=== PATIENT | female | born 1960 | race Caucasian/White ===

== ENCOUNTER 2016-05-28 08:27 | Outpatient (CLI) | payer MEDICAID ==
[2016-05-28] VITALS (19 sets, daily range): BP systolic 94–159; BP diastolic 49–74
[2016-05-28 10:36] LABS: ABO BLOOD TYPE O; ANTIHUMAN GLOB CROSSMATCH COMPAT; RH BLOOD TYPE POSITIVE
[2016-08-23] MEDS ORDERED: GABAPENTIN300 MG PO (15:14)
[2016-08-23] MEDS ORDERED: ZOFRAN ODT4 MG PO (15:18)
[2016-08-23] MEDS ORDERED: BISACODYL LAXATI5 MG PO (15:18)
[2016-08-23] MEDS ORDERED: IMODIUM 2MG. CAP2 MG PO (15:18)
[2016-08-23] MEDS ORDERED: PROMETHAZINE HC25 M1 PO (15:19)
[2016-08-23] MEDS ORDERED: CARAFATE1 GM PO (16:10)
== END 2016-05-28 15:58 | disposition home or self-care (01) ==
LOC: COP 08:27
PROVIDERS: Family Medicine
DX: D64.9 Anemia, unspecified (principal)
CPT/HCPCS: P9016

== ENCOUNTER 2016-06-19 09:44 | Inpatient (IN) | payer MEDICAID ==
[~2016-06-19] VITALS: Ht 160 cm; Wt 68.5 kg
[2016-06-19] VITALS (20 sets, daily range): BP systolic 92–139; BP diastolic 49–80
[2016-06-19] MEDS ORDERED: DOCUSATE SODIU100 MG PO (12:52)
[2016-06-19] MEDS ORDERED: BISOPROLOL 5MG T5 MG PO (12:53)
[2016-06-19] MEDS ORDERED: FEOSOL325 MG PO (12:53)
[2016-06-19] MEDS ORDERED: ACETAMINOPHEN325 M2 PO (12:54)
[2016-06-19] MEDS ORDERED: IMODIUM 2MG. CAP2 MG PO (12:55)
[2016-06-19] MEDS ORDERED: PHENERGAN25 M3 PO (12:55)
[2016-06-19] MEDS ORDERED: KETOROLAC0.03 ML/DR OP (12:57)
[2016-06-19] MEDS ORDERED: PERPHENAZINE4 MG PO ×2 (12:59→14:56)
[2016-06-19] MEDS ORDERED: LISINOPRIL 5MG T5 MG PO (13:00)
[2016-06-19] MEDS ORDERED: VIGAMOX 3 ML3 ML OP (13:00)
[2016-06-19] MEDS ORDERED: BENZTROPINE1 MG PO ×2 (13:01→14:54)
[2016-06-19] MEDS ORDERED: DEPAKOTE ER250 MG PO (13:03)
[2016-06-19] MEDS ORDERED: SAPHRIS5 MG SL ×2 (13:03→14:53)
[2016-06-19] MEDS ORDERED: Q-TUSSIN100 MG/5 M PO (13:04)
[2016-06-19] MEDS ORDERED: METFORMIN 500M500 MG PO (13:05)
[2016-06-19] MEDS ORDERED: CITALOPRAM HYDR20 MG PO (13:05)
[2016-06-19] MEDS ORDERED: GABAPENTIN300 MG PO (13:06)
[2016-06-19] MEDS ORDERED: FLUTICASONE 50M16 GM (13:06)
[2016-06-19] MEDS ORDERED: LORATADINE 10MG10 M1 PO (13:07)
[2016-06-19] MEDS ORDERED: LEVOTHYROXIN0.137 M1 PO (13:07)
--- NOTE | 2016-06-19 13:46 | CONSULT NOTE ---
Standard Demographics Patient Demo Date of Consultation: 06/19/16 Referring Provider: Ben Alonzo MD Reason for Consultation: Anemia PRIMARY DIAGNOSIS: ANEMIA Allergies: Coded Allergies: No Known Allergies (06/19/16) History of Present Illness Chief Complaint: Weakness History of Present Illness: Patient is a 55-year-old white female with history of schizophrenia who is a resident of [facility]. Apparently she was noted on routine preoperative blood work relatively recently prior to eye surgery to be anemic. No prior history of anemia. She has apparently had some recent vomiting. No known hematemesis. She had a syncopal episode today and was evaluated in her primary care provider's office at which time she was found to have appreciable anemia reportedly. She was admitted for inpatient management and surgical consultation. Past Medical History Denies: diabetes mellitus. Surgical History Previous Surgery?Y FULL MOUTH EXTRACTION RIGHT CATARACT Allergies Coded Allergies: No Known Allergies (06/19/16) Medications: Reported Medications Docusate Sodium 250 MG PO BID Ferrous Sulfate (Feosol) 325 MG PO BID BISOPROLOL FUMARATE (Bisoprolol 5MG) 5 MG PO DAILY Acetaminophen (Acetaminophen) 325 MG PO Q4HP PRN PAIN/FEVER PROMETHAZINE HCL (Phenergan 25MG Tab (Geq)) 25 MG PO QIDP PRN NAUSEA/VOMITING Loperamide Hcl (Loperamide) 2 MG PO QIDP PRN DIARRHEA Ketorolac Tromethamine (Ketorolac 0.5% Ophth Soln 5ML) 1 DROP OP QID Perphenazine 4 MG PO QHS MOXIFLOXACIN HCL (Vigamox 3 Ml) 1 DROP OP QID LISINOPRIL (Lisinopril) 5 MG PO DAILY BENZTROPINE MESYLATE (Benztropine 1MG Tab) 2 MG PO TID ASENAPINE MALEATE (Saphris) 5 MG SL BID Divalproex Sodium (Depakote ER) 500 MG PO DAILY Guaifenesin (Q-Tussin) 5 ML PO Q4H Citalopram Hydrobromide (Citalopram HBr) 20 MG PO DAILY METFORMIN HCL (Metformin 500MG) 500 MG PO DAILY Gabapentin (Gabapentin 300MG) 600 MG PO BID FLUTICASONE PROPIONATE (Fluticasone 50MCG Nasal [place]) 1 SPRAY NA DAILY Levothyroxine Sodium (Levothyroxine 0.137MG) 0.137 MG PO DAILY Loratadine (Loratadine 10MG Tablet) 10 MG PO DAILY Smoking Hx Tobacco: No Smoker: Never Smoker Type: N/A Packs/day: N/A Are you/the child exposed to second-hand smoke: No Alcohol Alcohol: No Hx of Drug Use Drug Use? No Review of Systems Constitutional Positive for: weak. Skin No: bruising. Immune/allergy No: anaphalaxis. Eyes No: vision loss. ENT No: hearing loss. Respiratory No: shortness of air. Cardiovascular No: chest pain. GI No: hematemeis. Physical Exam VS/I&O Vital Signs Date Time Temp Pulse Resp B/P Pulse O2 O2 Flow FiO2 Ox Delivery Rate 06/19 1105 97.9 83 18 114/49 98 ROOM AIR 06/19 1053 82 06/19 1053 98.1 82 18 114/49 06/19 1053 98 ROOM AIR Exam General appearance no acute distress Respiratory clear to auscultation Cardiovascular normal heart sounds Abdomen soft Skin pale Plan Plan: Follow up on laboratory studies. Transfuse if necessary. Likely tentatively plan to start with upper endoscopy tomorrow. at 1345
--- NOTE | 2016-06-19 13:48 | HISTORY AND PHYSICAL REPORT ---
History and Physical ([facility]) Date of admission: 06/19/16 Chief complaint: Dizziness, low BP, low HGB History: History of Present Illness: Ms. vIey is a 55yo female resident of the [facility] who presented to the office of [facility] today in [place] after an episode of dizziness and low BP. Her HGB was low as was her BP. She was directly admitted for a blood transfusion. According to the patient's family member she just had a transfusion about a month ago d/t low HGB. After receiving blood the last time, she vomited for a week and was taken to [facility] and was diagnosed with pneumonia. She states at this time the pneumonia is better as is the vomiting, she just feels very weak. Past Medical History: Medical History: CAD? No Angina: No OH: No Hypertension? No Hyperlipidemia? No CHF? No DVT? No PE? No COPD? No Asthma? No Anemia? Yes GERD? No Hernia? No Thyroid Problems? Yes Hypothyroidism? Yes CVA? No Seizures? No Diabetes? Yes Insulin Dependent: No Home FSBS? No UTI? No Stones? No GB Disease: No Nephritic Syndrome? No Asplenia? No Hepatitis? No Sickle Cell Disease? No Cataracts? Yes Glaucoma? No MRSA? No HIV? No TB? No Cancer? No More? Yes Additional hx: 1.ONYCHOMYCOSIS 2. SCHIZOPHRENIA Surgical history: Previous Surgery?Y 1. FULL MOUTH TOOTH EXTRACTION 2. 3. CATARACT Medications: Reported Medications ASENAPINE MALEATE (Saphris) 5 MG SL BID BENZTROPINE MESYLATE (Benztropine 1MG Tab) 1 MG PO TID Perphenazine 4 MG PO QHS Docusate Sodium 250 MG PO BID Ferrous Sulfate (Feosol) 325 MG PO BID BISOPROLOL FUMARATE (Bisoprolol 5MG) 5 MG PO DAILY Acetaminophen (Acetaminophen) 325 MG PO Q4HP PRN PAIN/FEVER PROMETHAZINE HCL (Phenergan 25MG Tab (Geq)) 25 MG PO QIDP PRN NAUSEA/VOMITING Loperamide Hcl (Loperamide) 2 MG PO QIDP PRN DIARRHEA Ketorolac Tromethamine (Ketorolac 0.5% Ophth Soln 5ML) 1 DROP OP QID Perphenazine 4 MG PO QHS MOXIFLOXACIN HCL (Vigamox 3 Ml) 1 DROP OP QID LISINOPRIL (Lisinopril) 5 MG PO DAILY Divalproex Sodium (Depakote ER) 500 MG PO DAILY Guaifenesin (Q-Tussin) 5 ML PO Q4H Citalopram Hydrobromide (Citalopram HBr) 20 MG PO DAILY METFORMIN HCL (Metformin 500MG) 500 MG PO DAILY Gabapentin (Gabapentin 300MG) 600 MG PO BID FLUTICASONE PROPIONATE (Fluticasone 50MCG Nasal [place]) 1 SPRAY NA DAILY Levothyroxine Sodium (Levothyroxine 0.137MG) 0.137 MG PO DAILY Loratadine (Loratadine 10MG Tablet) 10 MG PO DAILY Allergies: Coded Allergies: No Known Allergies (06/19/16) Family History: Family history: Postive for: CAD, DM, HTN. Negative for: cancer, hyperlipidemia, stroke. Social History: Smoking Hx Tobacco: No Smoker: Never Smoker Type: N/A Packs/day: N/A Are you exposed to second hand No Alcohol: Alcohol: No Hx of Drug Use: Drug Use? No Review of Systems: Constitutional Positive for: fatigue, lethargy, malaise, weak. ENT No: nasal congestion, sore throat. Cardiovascular No: chest pain, edema, palpitations. Respiratory No: shortness of air, productive cough (sputum), wheezing. GI Positive for: diarrhea, vomitting. No: abdominal pain, nausea. (female) No: frequency, hematuria. Neurological Positive for: dizziness, light headed, weakness. No: syncope. Musculoskeletal Positive for: joint pain (BACK). No: extremity pain, myalgias. Physical Exam: Vital signs: 1ST Vital Signs Result Date Time Pulse Ox 98 06/19 1053 O2 Delivery ROOM AIR 06/19 1053 B/P 114/49 06/19 1053 Temp 98.1 06/19 1053 Pulse 82 06/19 1053 Resp 18 06/19 1053 Exam: General appearance: alert, awake, no acute distress Eyes: EOM's w/normal ROM, PERRLA ENT: mucous membranes moist, nose normal, pharynx normal, tympanic membranes normal Neck: non-tender, full range of motion, supple Cardiovascular: regular rate & rhythm Respiratory: clear to auscultation ABD: non-distended, normal bowel sounds, no rebound, soft, no tenderness, no guarding Extremities: no peripheral edema Musculoskeletal: equal muscle strength, motor intact, sensation intact Skin: pale 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 Anemia 2. Hypothyroidism 3. Schizophrenia 4. Diabetes Plan: Pt will be transfused with 2 units of PRBC's. Will get an anemia workup. Dr. Irwin has been consulted and he note has been reviewed. (Bonnie Jaimes) Diagnosis(es): 1. Symptomatic anemia 2. Hypotension due to blood loss 3. Iron deficiency 4. Hypothyroidism 5. Schizophrenia 6. Diabetes Plan: Pt seen and examined. Concur with above assessment and plan. SHe is anxious about her procedure tomorrow. Will order Ambien for sleep. (Girish Alonzo MD) at 1501 at [phone]
--- NOTE | 2016-06-19 13:48 | HISTORY AND PHYSICAL REPORT ---
History and Physical ([facility]) Date of admission: 06/19/16 Chief complaint: Dizziness, low BP, low HGB History: History of Present Illness: Ms. Ivey is a 55yo female resident of the [facility] who presented to the office of [facility] today in [place] after an episode of dizziness and low BP. Her HGB was low as was her BP. She was directly admitted for a blood transfusion. According to the patient's family member she just had a transfusion about a month ago d/t low HGB. After receiving blood the last time, she vomited for a week and was taken to [facility] and was diagnosed with pneumonia. She states at this time the pneumonia is better as is the vomiting, she just feels very weak. Past Medical History: Medical History: CAD? No Angina: No OH: No Hypertension? No Hyperlipidemia? No CHF? No DVT? No PE? No COPD? No Asthma? No Anemia? Yes GERD? No Hernia? No Thyroid Problems? Yes Hypothyroidism? Yes CVA? No Seizures? No Diabetes? Yes Insulin Dependent: No Home FSBS? No UTI? No Stones? No GB Disease: No Nephritic Syndrome? No Asplenia? No Hepatitis? No Sickle Cell Disease? No Cataracts? Yes Glaucoma? No MRSA? No HIV? No TB? No Cancer? No More? Yes Additional hx: 1.ONYCHOMYCOSIS 2. SCHIZOPHRENIA Surgical history: Previous Surgery?Y 1. FULL MOUTH TOOTH EXTRACTION 2. 3. CATARACT Medications: Reported Medications ASENAPINE MALEATE (Saphris) 5 MG SL BID BENZTROPINE MESYLATE (Benztropine 1MG Tab) 1 MG PO TID Perphenazine 4 MG PO QHS Docusate Sodium 250 MG PO BID Ferrous Sulfate (Feosol) 325 MG PO BID BISOPROLOL FUMARATE (Bisoprolol 5MG) 5 MG PO DAILY Acetaminophen (Acetaminophen) 325 MG PO Q4HP PRN PAIN/FEVER PROMETHAZINE HCL (Phenergan 25MG Tab (Geq)) 25 MG PO QIDP PRN NAUSEA/VOMITING Loperamide Hcl (Loperamide) 2 MG PO QIDP PRN DIARRHEA Ketorolac Tromethamine (Ketorolac 0.5% Ophth Soln 5ML) 1 DROP OP QID Perphenazine 4 MG PO QHS MOXIFLOXACIN HCL (Vigamox 3 Ml) 1 DROP OP QID LISINOPRIL (Lisinopril) 5 MG PO DAILY Divalproex Sodium (Depakote ER) 500 MG PO DAILY Guaifenesin (Q-Tussin) 5 ML PO Q4H Citalopram Hydrobromide (Citalopram HBr) 20 MG PO DAILY METFORMIN HCL (Metformin 500MG) 500 MG PO DAILY Gabapentin (Gabapentin 300MG) 600 MG PO BID FLUTICASONE PROPIONATE (Fluticasone 50MCG Nasal [place]) 1 SPRAY NA DAILY Levothyroxine Sodium (Levothyroxine 0.137MG) 0.137 MG PO DAILY Loratadine (Loratadine 10MG Tablet) 10 MG PO DAILY Allergies: Coded Allergies: No Known Allergies (06/19/16) Family History: Family history: Postive for: CAD, DM, HTN. Negative for: cancer, hyperlipidemia, stroke. Social History: Smoking Hx Tobacco: No Smoker: Never Smoker Type: N/A Packs/day: N/A Are you exposed to second hand No Alcohol: Alcohol: No Hx of Drug Use: Drug Use? No Review of Systems: Constitutional Positive for: fatigue, lethargy, malaise, weak. ENT No: nasal congestion, sore throat. Cardiovascular No: chest pain, edema, palpitations. Respiratory No: shortness of air, productive cough (sputum), wheezing. GI Positive for: diarrhea, vomitting. No: abdominal pain, nausea. (female) No: frequency, hematuria. Neurological Positive for: dizziness, light headed, weakness. No: syncope. Musculoskeletal Positive for: joint pain (BACK). No: extremity pain, myalgias. Physical Exam: Vital signs: 1ST Vital Signs Result Date Time Pulse Ox 98 06/19 1053 O2 Delivery ROOM AIR 06/19 1053 B/P 114/49 06/19 1053 Temp 98.1 06/19 1053 Pulse 82 06/19 1053 Resp 18 06/19 1053 Exam: General appearance: alert, awake, no acute distress Eyes: EOM's w/normal ROM, PERRLA ENT: mucous membranes moist, nose normal, pharynx normal, tympanic membranes normal Neck: non-tender, full range of motion, supple Cardiovascular: regular rate & rhythm Respiratory: clear to auscultation ABD: non-distended, normal bowel sounds, no rebound, soft, no tenderness, no guarding Extremities: no peripheral edema Musculoskeletal: equal muscle strength, motor intact, sensation intact Skin: pale 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 Anemia 2. Hypothyroidism 3. Schizophrenia 4. Diabetes Plan: Pt will be transfused with 2 units of PRBC's. Will get an anemia workup. Dr. Irwin has been consulted and he note has been reviewed. (Bonnie Jaimes) Diagnosis(es): 1. Symptomatic anemia 2. Hypotension due to blood loss 3. Iron deficiency 4. Hypothyroidism 5. Schizophrenia 6. Diabetes Plan: Pt seen and examined. Concur with above assessment and plan. SHe is anxious about her procedure tomorrow. Will order Ambien for sleep. (Girish Alonzo MD) at 1501 at 1795
[2016-06-19 14:32] LABS: HEMOGLOBIN 4.9 g/dL (12.2-16.2)
[2016-06-19 14:35] LABS: ABO BLOOD TYPE O; ANTIHUMAN GLOB CROSSMATCH COMPAT; RH BLOOD TYPE POSITIVE
[2016-06-19] MEDS ORDERED: BENZTROPINE2 MG PO (14:54)
[2016-06-19 15:22] LABS: ANTIHUMAN GLOB CROSSMATCH COMPAT
[2016-06-19 19:56] LABS: HEMOGLOBIN 8.2 g/dL (12.2-16.2)
[2016-06-20] VITALS (13 sets, daily range): BP systolic 125–148; BP diastolic 65–84
--- NOTE | 2016-06-20 08:02 | PHARMACY CLINIC NOTE ---
Patient Demographics Patient Demographics Admission date: 06/19/16 Date: 06/20/16 Time: 0801 Allergies Coded Allergies: No Known Allergies (06/19/16) HEIGHT- FT: 5 IN: 3.00 K.456 VTE General Information Labs: Laboratory Tests 06/19 06/19 1935 1315 Hematology Hgb (12.2 - 16.2 g/dL) 8.2 L 4.9 *L Hct (37.0 - 47.0 %) 24.6 L 15.7 *L Disclaimer The following section includes nursing documentation that has been pulled in for pharmacy review. Patient's VTE score: 1 Patient's VTE Risk: VERY LOW RISK Clinical trial participant? No VTE prophylaxis [id number] VTE prophylaxis ordered? Yes Type of prophylaxis/treatment: DEYSI at 0801
--- NOTE | 2016-06-20 08:10 | ACUTE CARE PROGRESS NOTE (QUA) ---
Progress Notes Subjective Date 06/20/16 Time 0806 Note Pt states she feels awful this am. She says she has vomited all night. Her stomach, back, and chest all hurt. She did sleep fairly well. She would like something to help her have a BM. She states she feels constipated. Objective Findings Last VS-Temp:98.6 B/P:148/84 Pulse:91 Resp:20 SaO2:94 ROOM AIR Last weight lbs:153 oz:2 K.456 Method:Bed Scales Laboratory Tests 06/19/16 1935: Hgb 8.2 L, Hct 24.6 L 06/19/16 1643: Misc Test Units BLOOD UNIT RELEASE 06/19/16 1427: Misc Test Units BLOOD UNIT RELEASE 06/19/16 1315: Ferritin 129, Hgb 4.9 *L, Hct 15.7 *L, Antibody Screen NEGATIVE, Miscellaneous Test POSITIVE Exam General appearance: alert, awake, no acute distress Cardiovascular: regular rate & rhythm Respiratory: clear to auscultation ABD: non-distended, normal bowel sounds, no rebound, soft, no guarding, diffusely ttp Extremities: no peripheral edema Assessment/Plan Problem List 1. Symptomatic anemia 2. Hypotension due to blood loss 3. Iron deficiency 4. Hypothyroidism 5. Schizophrenia 6. Diabetes 7. Nausea and vomiting Plan: Will start on some zofran for nausea and vomiting. Will start back on colace that she was taking at [facility]. H & H has improved. Awaiting Dr. Irwin this am to see if patient is going to need any further testing. This inpt stay is expected to cross 2 MNs from start of care Yes (Bonnie Jaimes) Subjective Date 06/20/16 Time 0905 Assessment/Plan Problem List 1. Symptomatic anemia 2. Hypotension due to blood loss 3. Iron deficiency 4. Hypothyroidism 5. Schizophrenia 6. Diabetes 7. Nausea and vomiting Plan: Pt seen and examined. Color is better. Abdomen soft and NT. H&H is stable with HGB up to 9.2. She is scheduled for EGD this AM. Will continue to monitor H&H. (Girish Alonzo MD) at 0810 at 1041
[2016-06-20 08:45] LABS: Folate (Folic Acid) 5.4 ng/mL (>3.0)
[2016-06-20 09:19] LABS: LYMPH # 0.8 K/mm3 (0.7-4.5); LYMPH % 13.7 % (10-50.0)
[2016-06-20 09:30] LABS: HEMOGLOBIN 9.2 g/dL (12.2-16.2)
--- NOTE | 2016-06-20 13:10 | Operative Note ---
Endoscopy Report Date: 06/20/16 Preoperative diagnosis: Anemia, gastrointestinal blood loss Procedure Type of procedure: Esophagogastroduodenoscopy with biopsy Indications: Patient is a 55-year-old white female who is a resident at a [facility]. Apparently on outpatient blood work she was noted to be anemic. She had reportedly been seen at [facility] relatively recently. For a couple of weeks she has had some vomiting. Most recently however she had near syncopal episode and presented to [facility] in [place]. Noted to have markedly diminished hemoglobin. She was made a direct admit for workup and transfusion. Surgical consultation was obtained and plan was made for upper endoscopy. Consent was obtained and patient was taken to the endoscopy procedure room. She was positioned in a lateral position. Adequate intravenous sedation was achieved with titration of propofol. Olympus endoscope was inserted via the oropharynx. Proximal esophagus was unremarkable. Distal esophagus revealed evidence of erosive esophagitis. There were findings suggestive of Merino's esophagus as well. Stomach was cannulated and insufflated. There is a large amount of liquid and particulate material filling of the stomach. This was suctioned free. Retroflexion revealed no evidence of any pathologic hiatal hernia. Within the gastric lumen in the mid body of the stomach there were several moderate sized ulcers. A couple of these had adherent clot. Distal to this there were some large erosions within the antrum. Pylorus appeared rather edematous. Through the pylorus there was a visible large deep ulceration within the duodenal bulb. There was adherent clot. This was irrigated free. There appeared to be at least 2 large ulcerations within the duodenal bulb but the overall anatomy was difficult to ascertain secondary to the inflammation from the large ulcers. Ultimately with some difficulty the endoscope was able to be advanced beyond the duodenal bulb and the distal duodenum appeared unremarkable. Endoscope was withdrawn into the distal stomach. Gastric antral mucosal biopsy was obtained for CLOtest for H. pylori. Additional limited gastric biopsy was obtained for histopathologic analysis. Endoscope was withdrawn. Findings: 1. Distal erosive esophagitis 2. Probable Merino's esophagus possibly with dysplasia 3. Moderate ulcers in the mid body of the stomach 4. Large erosions in the antrum 5. More than one very large ulcer with stigmata of recent bleeding in the duodenal bulb Recommendations: Recommend high-dose therapeutic intravenous proton pump inhibitors for at least 72 hours. Transfuse as appropriate. If remains stable may be able to be discharged on oral proton pump inhibitors. Treat H. pylori if positive. Would not advance beyond full liquids for diet. She does have a appreciable possibility of developing a gastric outlet obstruction with healing of these ulcers. This will have to be followed closely as an outpatient. If she does well with no symptoms consistent with gastric outlet obstruction in the ensuing weeks would recommend repeat upper endoscopy. at 1310
[2016-06-20] MEDS ORDERED: SAPHRIS5 MG SL ×2 (16:23→16:24)
[2016-06-20] MEDS ORDERED: BENZTROPINE1 MG PO (16:30)
[2016-06-20] MEDS ORDERED: NAPROXEN500 M1 PO (16:34)
[2016-06-21] VITALS (10 sets, daily range): BP systolic 96–132; BP diastolic 50–84
[2016-06-21 01:07] LABS: STOOL OCCULT BLOOD TRACE (NEG)
[2016-06-21 06:38] LABS: HEMOGLOBIN 8.5 g/dL (12.2-16.2); LYMPH # 1.2 K/mm3 (0.7-4.5); LYMPH % 16.8 % (10-50.0)
--- NOTE | 2016-06-21 08:19 | ACUTE CARE PROGRESS NOTE (QUA) ---
Progress Notes Subjective Date 06/21/16 Time 0814 Note Pt is feeling better this am. No more abdominal or chest pain. Had EGD yesterday. Slept well last night. Tolerating liquids today. Had a BM. No more vomiting. Objective Findings Last VS-Temp:98.2 B/P:131/84 Pulse:73 Resp:18 SaO2:95 ROOM AIR Last weight lbs:154 oz:2 K.91 Method:Bed Scales Laboratory Tests 06/21/16 0604: Sodium 132 L, Potassium 4.4, Chloride 100, Carbon Dioxide 28, BUN 9, Creatinine 0.8, Estimated Creat Clear 85, Estimated GFR (MDRD) 74, Glucose 96, Calcium 8.3 L, WBC 6.9, RBC 3.04 L, Hgb 8.5 L, Hct 26.3 L, MCV 86.5, RDW 17.7 H, Plt Count 345, MPV 7.9, Gran % 75.6, Gran # 5.2, Lymphocytes % 16.8, Monocytes % 6.5 , Eosinophils % 1.2, Basophils % 0.0 L, Lymphocytes # 1.2, Monocytes # 0.5, Eosinophils # 0.1, Basophils # 0.0, PUBS MCHC 32.2, MCH 27.8 06/20/16 2015: Stool Occult Blood TRACE Microbiology 06/20 1248 BIOPSY: Helicobacter pylori Screen - COMP Exam General appearance: alert, awake, no acute distress Cardiovascular: regular rate & rhythm Respiratory: clear to auscultation ABD: non-distended, normal bowel sounds, no rebound, soft, no tenderness, no guarding Extremities: no peripheral edema Assessment/Plan Problem List 1. Erosive esophagitis 2. Stomach ulcer 3. Symptomatic anemia 4. Hypotension due to blood loss 5. Iron deficiency 6. Hypothyroidism 7. Schizophrenia 8. Diabetes 9. Nausea and vomiting Plan: Dr. Irwin recommends high dose PPI's IV for the next 72 hours and then bid PPI in pill form thereafter. Will continue liquid diet. This inpt stay is expected to cross 2 MNs from start of care Yes (Bonnie Jaimes) Subjective Date 06/21/16 Time 0839 Assessment/Plan Problem List 1. Duodenal ulcer 2. Stomach ulcer 3. Erosive esophagitis 4. Symptomatic anemia 5. Hypotension due to blood loss Assessment/Plan improved. 6. Iron deficiency 7. Hypothyroidism 8. Schizophrenia 9. Diabetes 10. Nausea and vomiting Plan: Pt seen and examined. SHe rested better last night and seems less anxious this AM. Had BM last night. EGD report noted and will start Protonix as recommended. Continue clear liquids and follow H&H. Awaiting biopsy results. (Girish Alonzo MD) at 0818 at 0842
[2016-06-22] VITALS (24 sets, daily range): BP systolic 99–138; BP diastolic 52–91
[2016-06-22 07:15] LABS: HEMOGLOBIN 8.1 g/dL (12.2-16.2); LYMPH % 34.9 % (10-50.0)
--- NOTE | 2016-06-22 08:15 | ACUTE CARE PROGRESS NOTE (QUA) ---
Progress Notes Subjective Date 06/22/16 Time 0813 Note Pt states she feels better today. No abdominal pain, nausea, or vomiting. She has been tolerating a clear liquid diet. Objective Findings Last VS-Temp:98.5 B/P:117/71 Pulse:75 Resp:18 SaO2:96 ROOM AIR Last weight lbs:152 oz:7 K.144 Method:Bed Scales Laboratory Tests 06/22/16 0640: WBC 5.7, RBC 2.88 L, Hgb 8.1 L, Hct 25.3 L, MCV 88.0, RDW 17.7 H, Plt Count 321, MPV 8.2, Gran % 52.6, Gran # 3.0, Lymphocytes % 34.9, Monocytes % 7.9, Eosinophils % 4.4, Basophils % 0.2, Lymphocytes # 2.0, Monocytes # 0.5, Eosinophils # 0.3, Basophils # 0.0, PUBS MCHC 31.8, MCH 28.0 Exam General appearance: alert, awake, no acute distress Cardiovascular: regular rate & rhythm Respiratory: clear to auscultation ABD: non-distended, normal bowel sounds, no rebound, soft, no tenderness, no guarding Extremities: no peripheral edema Assessment/Plan Problem List 1. Duodenal ulcer 2. Stomach ulcer 3. Erosive esophagitis 4. Symptomatic anemia 5. Hypotension due to blood loss 6. Iron deficiency 7. Hypothyroidism 8. Schizophrenia 9. Diabetes 10. Nausea and vomiting Plan: Will transfuse a few more units of blood today. Possible discharge on Saturday after 72 hours of IV PPI's. This inpt stay is expected to cross 2 MNs from start of care Yes (Bonnie Jaimes) Subjective Date 06/22/16 Time 0914 Assessment/Plan Problem List 1. Duodenal ulcer 2. Stomach ulcer 3. Erosive esophagitis 4. Symptomatic anemia 5. Hypotension due to blood loss 6. Iron deficiency 7. Hypothyroidism 8. Schizophrenia 9. Diabetes 10. Nausea and vomiting Plan: Pt seen and examined. Color is good. NAD. Will contiue per orders and transfuse 2 more units PRBC today. Spoke to sister, Juanis, to update her condition (Girish Alonzo MD) at 0815 at 0985
--- NOTE | 2016-06-22 08:35 | SURGEON PROGRESS NOTE ---
Subjective data Subjective data: MC GASTELUM is a 55 F .Patient denies complaint of nausea and vomitting.She reports her last pain level as 0 on a 0-10 pain scale. No major complaints. Assessment findings Assessment Exam General appearance: normal appearance, alert ABD: soft, no tenderness Patient plan Plan: Advance diet Additional data: Continue IV PPIs for 72 hours. Will advance to pureed diet. Transfusing 2 additional units PRBCs today. at 0834
[2016-06-22 10:26] LABS: ABO BLOOD TYPE O; ANTIHUMAN GLOB CROSSMATCH COMPAT; RH BLOOD TYPE POSITIVE
[2016-06-22 10:27] LABS: ANTIHUMAN GLOB CROSSMATCH COMPAT
[2016-06-22 19:36] LABS: HEMOGLOBIN 10.1 g/dL (12.2-16.2)
[2016-06-23 05:09] VITALS: BP 102/60
[2016-06-23 07:58] VITALS: BP 137/80
--- NOTE | 2016-06-23 08:39 | ACUTE CARE PROGRESS NOTE (QUA) ---
Progress Notes Subjective Date 06/23/16 Time 0839 Note No new complaints. Tolerating diet. No abdominal pain or nausea. +BM. Anxious to go home. Objective Findings Laboratory Tests 06/23/16 0820: Hgb 10.6 L, Hct 32.8 L 06/22/16 1927: Hgb 10.1 L, Hct 30.5 L Last VS-Temp:98.6 B/P:137/80 Pulse:71 Resp:18 SaO2:97 ROOM AIR Last weight lbs:151 oz:0 K.492 Method:Bed Scales Exam General appearance: alert, no acute distress ABD: normal bowel sounds, soft, no tenderness Skin: normal color Assessment/Plan Problem List 1. Duodenal ulcer 2. Stomach ulcer 3. Erosive esophagitis 4. Symptomatic anemia 5. Hypotension due to blood loss 6. Iron deficiency 7. Hypothyroidism 8. Schizophrenia 9. Diabetes 10. Nausea and vomiting Plan: No sign of active bleeding. H&H stable. Will continue IV Protonix and likely discharge home tomorrow. This inpt stay is expected to cross 2 MNs from start of care Yes at 1121
[2016-06-23 08:43] LABS: HEMOGLOBIN 10.6 g/dL (12.2-16.2)
--- NOTE | 2016-06-23 09:26 | SURGEON PROGRESS NOTE ---
Subjective data Subjective data: Feels "fine". Objective data Vitals,I&O,and Labs: Vital signs, intake and output,and available lab data for the last 24 hours is as noted below. Vital Signs Date Time Temp Pulse Resp B/P Pulse O2 O2 Flow FiO2 Ox Delivery Rate 06/23 0758 98.6 71 18 137/80 97 ROOM AIR 06/23 0509 99.0 64 18 102/60 96 ROOM AIR 06/22 2039 99.2 87 20 138/69 96 06/22 1957 99.2 87 20 138/69 96 ROOM AIR 06/22 1625 98.4 75 16 128/79 06/22 1603 98.1 76 18 122/91 96 ROOM AIR 06/22 1525 99.1 74 18 115/71 06/22 1455 99.2 86 18 133/80 06/22 1440 98.9 79 16 113/69 06/22 1425 98.5 80 16 135/80 06/22 1410 99.0 77 16 103/66 06/22 1405 99.0 75 18 112/69 06/22 1400 98.9 75 18 110/70 06/22 1355 99.3 77 18 110/75 06/22 1300 99.1 77 16 118/74 06/22 1220 98.9 76 18 111/66 06/22 1205 98.8 71 18 115/69 06/22 1158 98.6 76 18 113/70 96 ROOM AIR 06/22 1150 98.8 74 18 114/63 06/22 1135 99.0 78 18 111/69 06/22 1130 99.4 76 16 110/63 06/22 1125 99.1 80 16 104/59 06/22 1120 98.3 78 16 99/54 06/22 1500 06/22 2300 06/23 0700 Intake Total 886 651 20 Output Total 350 350 Balance 536 301 20 Intake, IV 286 291 20 Intake, Oral 600 360 Output, Stool Output, Urine 350 350 Patient 68.492 kg Weight Laboratory Tests Test Result Date Time Chemistry Sodium (mmoL/L) 132 06/21 06 Potassium (mmoL/L) 4.4 06/21 06 Chloride (mmoL/L) 100 06/21 06 Carbon Dioxide (mmoL/L) 28 06/21 06 BUN (mg/dL) 9 06/21 0604 Creatinine (mg/dL) 0.8 06/21 06 Estimated Creat Clear (ML/MIN) 85 06/21 06 Estimated GFR (MDRD) (ML/MIN) 74 06/21 06 Glucose (mg/dL) 96 06/21 06 Calcium (mg/dL) 8.3 06/21 06 Iron (send out) (ug/dL) 17 06/19 1315 TIBC (ug/dL) 266 06/19 1315 % Saturation (%) 6 06/19 1315 Unsaturated IBC (ug/dL) 249 06/19 1315 Ferritin (ng/mL) 129 06/19 1315 Vitamin B12 (pg/mL) 976 06/19 1315 Folate (ng/mL) 5.4 06/19 1315 Coagulation PT (SECONDS) 10.9 06/20 0740 INR 1.02 06/20 0740 Hematology WBC (K/MM3) 5.7 06/22 06 RBC (M/mm3) 2.88 06/22 639 Hgb (g/dL) 10.6 06/23 08 Hct (%) 32.8 06/23 0820 MCV (fl) 88.0 06/22 06 RDW (%) 17.7 06/22 06 Plt Count (K/mm3) 321 06/22 639 MPV (fl) 8.2 06/22 639 Gran % (%) 52.6 06/22 639 Gran # (K/mm3) 3.0 06/22 639 Lymphocytes % (%) 34.9 06/22 639 Monocytes % (%) 7.9 06/22 639 Eosinophils % (%) 4.4 06/22 639 Basophils % (%) 0.2 06/22 639 Lymphocytes # (K/mm3) 2.0 06/22 639 Monocytes # (K/mm3) 0.5 06/22 639 Eosinophils # (K/mm3) 0.3 06/22 639 Basophils # (K/MM3) 0.0 06/22 639 PUBS MCHC (g/dl) 31.8 06/22 639 Immunology Antibody Screen NEGATIVE 06/22 844 MCH (pg) 28.0 06/22 639 Miscellaneous Miscellaneous Test POSITIVE 06/22 844 Misc Test Units BLOOD UNIT RELEASE 06/22 1105 Other Body Source Stool Occult Blood TRACE 06/20 2014 Additional data: Good response to PRBCs yesterday. Assessment findings Assessment Exam General appearance: no acute distress Cardiovascular: regular rate & rhythm Respiratory: no respiratory distress ABD: soft Patient plan Diagnoses: duodenal ulcer with recent acute bleed -- now stable and with no signs of ongoing blood loss Plan: continue current medical therapy, likely discharge home soon on PO PPI ( after full 72 hours of IV PPI), will follow-up closely with Dr. Irwin (likely repeat EGD in 6-8 weeks) at 1883
[2016-06-23 10:17] VITALS: BP 137/80
[2016-06-23 16:06] VITALS: BP 119/65
[2016-06-23 19:20] VITALS: BP 119/65; BP 128/74
[2016-06-23 19:35] VITALS: BP 128/74
[2016-06-24 04:02] VITALS: BP 113/63
[2016-06-24 07:44] VITALS: BP 141/75
--- NOTE | 2016-06-24 08:32 | ACUTE CARE PROGRESS NOTE (QUA) ---
Progress Notes Subjective Date 06/24/16 Time 0828 Note No new complaints. Eager to go home. Objective Findings Last VS-Temp:98.3 B/P:141/75 Pulse:71 Resp:18 SaO2:99 ROOM AIR Last weight lbs:151 oz:0 K.492 Method:Bed Scales Exam General appearance: alert, no acute distress Cardiovascular: regular rate & rhythm Respiratory: clear to auscultation ABD: non-distended, normal bowel sounds, soft, no tenderness Extremities: no peripheral edema Skin: normal color Reviewed: medications, vital signs, lab results, nursing notes, path report Assessment/Plan Problem List 1. Duodenal ulcer 2. Stomach ulcer 3. Erosive esophagitis 4. Symptomatic anemia 5. Hypotension due to blood loss 6. Iron deficiency 7. Hypothyroidism 8. Schizophrenia 9. Diabetes 10. Nausea and vomiting Plan: Discharge back to [facility] on continued high dose PPI and iron supplement. Will advance diet. F/u 5 days at [facility] for recheck and with Dr. Irwin in 2 weeks. This inpt stay is expected to cross 2 MNs from start of care Yes at 0831
--- NOTE | 2016-06-24 08:32 | ACUTE CARE PROGRESS NOTE (QUA) ---
Progress Notes Subjective Date 06/24/16 Time 0828 Note No new complaints. Eager to go home. Objective Findings Last VS-Temp:98.3 B/P:141/75 Pulse:71 Resp:18 SaO2:99 ROOM AIR Last weight lbs:151 oz:0 K.492 Method:Bed Scales Exam General appearance: alert, no acute distress Cardiovascular: regular rate & rhythm Respiratory: clear to auscultation ABD: non-distended, normal bowel sounds, soft, no tenderness Extremities: no peripheral edema Skin: normal color Reviewed: medications, vital signs, lab results, nursing notes, path report Assessment/Plan Problem List 1. Duodenal ulcer 2. Stomach ulcer 3. Erosive esophagitis 4. Symptomatic anemia 5. Hypotension due to blood loss 6. Iron deficiency 7. Hypothyroidism 8. Schizophrenia 9. Diabetes 10. Nausea and vomiting Plan: Discharge back to [facility] on continued high dose PPI and iron supplement. Will advance diet. F/u 5 days at [facility] for recheck and with Dr. Irwin in 2 weeks. This inpt stay is expected to cross 2 MNs from start of care Yes at 0831
[2016-06-24] MEDS ORDERED: OMEPRAZOLE40 MG PO (08:35)
[2016-06-24 10:36] VITALS: BP 141/75
--- NOTE | 2016-06-24 10:56 | SURGEON PROGRESS NOTE ---
Subjective data Subjective data: No new complaints. No melena. No hematemesis. Ready for discharge. Objective data Vitals,I&O,and Labs: Vital signs, intake and output,and available lab data for the last 24 hours is as noted below. Vital Signs Date Time Temp Pulse Resp B/P Pulse O2 O2 Flow FiO2 Ox Delivery Rate 06/24 1036 98.3 71 18 141/75 06/24 0859 98.3 71 18 141/75 99 06/24 0744 98.3 71 18 141/75 99 ROOM AIR 06/24 0402 98.6 64 18 113/63 98 ROOM AIR 06/23 1935 98.7 79 18 128/74 96 ROOM AIR 06/23 1920 98.7 79 18 128/74 95 06/23 1606 98.2 83 18 119/65 95 ROOM AIR 06/23 1500 06/23 2300 06/24 0700 Intake Total 1440 360 20 Output Total Balance 1440 360 20 Intake, IV 20 Intake, Oral 1440 360 Output, Stool Laboratory Tests Test Result Date Time Chemistry Sodium (mmoL/L) 132 06/21 0604 Potassium (mmoL/L) 4.4 06/21 0604 Chloride (mmoL/L) 100 06/21 0604 Carbon Dioxide (mmoL/L) 28 06/21 0604 BUN (mg/dL) 9 06/21 06 Creatinine (mg/dL) 0.8 06/21 06 Estimated Creat Clear (ML/MIN) 85 06/21 06 Estimated GFR (MDRD) (ML/MIN) 74 06/21 06 Glucose (mg/dL) 96 06/21 06 Calcium (mg/dL) 8.3 06/21 0604 Iron (send out) (ug/dL) 17 06/19 1315 TIBC (ug/dL) 266 06/19 1315 % Saturation (%) 6 06/19 1315 Unsaturated IBC (ug/dL) 249 06/19 1315 Ferritin (ng/mL) 129 06/19 1315 Vitamin B12 (pg/mL) 976 06/19 1315 Folate (ng/mL) 5.4 06/19 1315 Coagulation PT (SECONDS) 10.9 06/20 0740 INR 1.02 06/20 0740 Hematology WBC (K/MM3) 5.7 06/22 0640 RBC (M/mm3) 2.88 01/27 0640 Hgb (g/dL) 10.6 06/23 08 Hct (%) 32.8 06/23 819 MCV (fl) 88.0 06/22 639 RDW (%) 17.7 06/22 639 Plt Count (K/mm3) 321 06/22 639 MPV (fl) 8.2 06/22 639 Gran % (%) 52.6 06/22 639 Gran # (K/mm3) 3.0 06/22 639 Lymphocytes % (%) 34.9 06/22 639 Monocytes % (%) 7.9 06/22 639 Eosinophils % (%) 4.4 06/22 639 Basophils % (%) 0.2 06/22 639 Lymphocytes # (K/mm3) 2.0 06/22 639 Monocytes # (K/mm3) 0.5 06/22 639 Eosinophils # (K/mm3) 0.3 06/22 639 Basophils # (K/MM3) 0.0 06/22 639 PUBS MCHC (g/dl) 31.8 06/22 639 Immunology Antibody Screen NEGATIVE 06/22 844 MCH (pg) 28.0 06/22 639 Miscellaneous Miscellaneous Test POSITIVE 06/22 844 Misc Test Units BLOOD UNIT RELEASE 06/22 1105 Other Body Source Stool Occult Blood TRACE 06/20 2014 Assessment findings Assessment Exam General appearance: no acute distress Cardiovascular: regular rate & rhythm Respiratory: no respiratory distress ABD: soft Patient plan Diagnoses: UGI bleed secondary to duodenal ulceration(s) -- currently stable on PPI with no sign of active bleeding Plan: close outpatient follow-up with likely repeat EGD in 6-8 weeks (will be pending evaluation by Dr. Irwin), continue PPI at 1053
--- NOTE | 2016-06-28 13:04 | DISCHARGE SUMMARY STANDARD ---
Discharge Summary (FCA2) Date of admission: 06/19/16 Date of discharge: 06/24/16 Problem List: 1. Duodenal ulcer 2. Stomach ulcer 3. Erosive esophagitis 4. Symptomatic anemia 5. Hypotension due to blood loss 6. Iron deficiency 7. Hypothyroidism 8. Schizophrenia 9. Diabetes 10. Nausea and vomiting History of present illness: Ms. Ivey is a 55yo female resident of the [facility] who presented to the office of A in [place] after an episode of dizziness and low BP. Her HGB was low as was her BP. She was directly admitted for a blood transfusion. According to the patient's family member she just had a transfusion about a month ago d/t low HGB. After receiving blood the last time, she vomited for a week and was taken to [facility] and was diagnosed with pneumonia. She stated at this time the pneumonia was better as was the vomiting, she just felt very weak. 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 She was initially transfused with 2 units of packed red blood cells and an anemia workup was ordered. Dr. Irwin was consulted. He saw the patient and performed an EGD on 06/20/16. It showed distal erosive esophagitis with probable Merino's esophagus. There were moderate ulcers in the mid body of the stomach and a large erosion in the antrum. There was more than one very large ulcer with stigmata of recent bleeding in the duodenal bulb. Dr. Irwin recommended high-dose IV proton pump inhibitors for at least 72 hours and transfuse as appropriate. If she remained stable, he felt she could be discharged home on oral PPIs. He felt she would also need a repeat upper endoscopy in the next few weeks. She tolerated her clear liquid diet well. She had to have 2 more units of packed red blood cells during her admission. Her H and H remained stable after this. She continued IV Protonix for 72 hours. She was stable to be discharged back to [facility] on 06/24/16 on continued high-dose PPI's and an iron supplement. Her diet was advanced. She was to follow-up in the [facility] of [facility] in 5 days and follow-up with Dr. Irwin in 2 weeks. Disposition: F/u with: Girish Alonzo MD Follow up: 5 DAYS Activity: Cont Current activity Diet: Diabetic Diet Discharge to: [facility] Specify Personal Fdc: [facility] ([facility]nie Ja[facility]) Problem List: 1. Duodenal ulcer 2. Stomach ulcer 3. Erosive esophagitis 4. Symptomatic anemia 5. Hypotension due to blood loss 6. Iron deficiency 7. Hypothyroidism 8. Schizophrenia 9. Diabetes 10. Nausea and vomiting Discharge medications: Stop taking the following medications: Naproxen (Naproxen) 500 MG TABLET ORAL TWICE A DAY Continue taking these medications: Docusate Sodium (Docusate Sodium) 100 MG CAPSULE 250 MILLIGRAM ORAL TWICE A DAY Ferrous Sulfate (Feosol) 325 MG TABLET 325 MILLIGRAM ORAL TWICE A DAY Acetaminophen (Acetaminophen Tab) 325 MG TABLET 650 MILLIGRAM ORAL EVERY 4 HOURS NEEDED as needed for PAIN/FEVER PROMETHAZINE HCL (Phenergan 25MG Tab (Geq)) 25 MG TABLET 25 MILLIGRAM ORAL FOUR TIMES A DAY NEEDED as needed for NAUSEA/VOMITING Loperamide Hcl (Loperamide) 2 MG CAPSULE 2 MILLIGRAM ORAL FOUR TIMES A DAY NEEDED as needed for DIARRHEA Ketorolac Tromethamine (Ketorolac 0.5% Ophth Soln 5ML) 5 ML DROPS 1 DROP OPHTHALMIC FOUR TIMES A DAY Instructions: RIGHT EYE MOXIFLOXACIN HCL (Vigamox 3 Ml) 3 ML DROPS 1 DROP OPHTHALMIC FOUR TIMES A DAY Instructions: 1 DROP TO RIGHT EYE QID LISINOPRIL (Lisinopril) 5 MG TABLET 5 MILLIGRAM ORAL DAILY Divalproex Sodium (Depakote ER) 250 MG TAB.ER.24H 500 MILLIGRAM ORAL AT BEDTIME NIGHTLY Guaifenesin (Q-Tussin) 100 MG/5 ML LIQUID 5 MILLILITER ORAL EVERY 4 HOURS Citalopram Hydrobromide (Citalopram HBr) 20 MG TABLET 20 MILLIGRAM ORAL DAILY METFORMIN HCL (Metformin 500MG) 500 MG TABLET 500 MILLIGRAM ORAL DAILY Gabapentin (Gabapentin 300MG) 300 MG CAPSULE 600 MILLIGRAM ORAL TWICE A DAY FLUTICASONE PROPIONATE (Fluticasone 50MCG Nasal [place]) 16 GM SPRAY.SUSP 1 SPRAY Nasal DAILY Levothyroxine Sodium (Levothyroxine 0.137MG) 137 MCG TABLET 0.137 MILLIGRAM ORAL DAILY Loratadine (Loratadine 10MG Tablet) 10 MG TABLET 10 MILLIGRAM ORAL DAILY BENZTROPINE MESYLATE (Benztropine 1MG Tab) 1 MG TABLET 2 MILLIGRAM ORAL 0900,2100 Perphenazine (Perphenazine) 4 MG TABLET 4 MILLIGRAM ORAL AT BEDTIME NIGHTLY ASENAPINE MALEATE (Saphris) 5 MG TAB.SUBL 5 MILLIGRAM SUBLINGUAL EVERY MORNING ASENAPINE MALEATE (Saphris) 5 MG TAB.SUBL 15 MILLIGRAM SUBLINGUAL AT BEDTIME NIGHTLY BENZTROPINE MESYLATE (Benztropine 1MG Tab) 1 MG TABLET 1 MILLIGRAM ORAL 1500 Start taking the following new medications: Omeprazole (Omeprazole 40MG) 40 MG CAPSULE. 40 MILLIGRAM ORAL DAILY Qty = 60 Refills = 2 Disposition: Concur with above. (Clinton HAAS,Girish Contreras) at 1300
[2016-08-23] MEDS ORDERED: GABAPENTIN300 MG PO (15:14)
[2016-08-23] MEDS ORDERED: BISACODYL LAXATI5 MG PO (15:18)
[2016-08-23] MEDS ORDERED: ZOFRAN ODT4 MG PO (15:18)
[2016-08-23] MEDS ORDERED: IMODIUM 2MG. CAP2 MG PO (15:18)
[2016-08-23] MEDS ORDERED: PROMETHAZINE HC25 M1 PO (15:19)
[2016-08-23] MEDS ORDERED: CARAFATE1 GM PO (16:10)
== END 2016-06-24 11:20 | disposition home or self-care (01) | DRG 384 ==
LOC: 2ND 09:44
PROVIDERS: Family Medicine; Surgery
PROC: 0DB68ZX Excision of Stomach, Via Natural or Artificial Opening Endoscopic, Diagnostic (ICD-10-PCS; principal; 2016-06-20 12:00)
DX: K26.9 Duodenal ulcer, unspecified as acute or chronic, without hemorrhage or perforation (principal); K25.9 Gastric ulcer, unspecified as acute or chronic, without hemorrhage or perforation; F20.9 Schizophrenia, unspecified; K22.70 Barrett's esophagus without dysplasia; D50.0 Iron deficiency anemia secondary to blood loss (chronic); E11.9 Type 2 diabetes mellitus without complications; F31.9 Bipolar disorder, unspecified; E03.9 Hypothyroidism, unspecified
CPT/HCPCS: J2405; P9016

== ENCOUNTER → 2016-12-07 | Outpatient (CLI) | payer MEDICAID ==
[~2016-12-07] MED LIST: ACETAMINOPHEN325 M2 PO; BENZTROPINE1 MG PO; BENZTROPINE2 MG PO; BISACODYL LAXATI5 MG PO; BISOPROLOL 5MG T5 MG PO; CARAFATE1 GM PO; CITALOPRAM HYDR20 MG PO; DEPAKOTE ER250 MG PO; DOCUSATE SODIU100 MG PO; FEOSOL325 MG PO; FLUTICASONE 50M16 GM; GABAPENTIN300 MG PO; IMODIUM 2MG. CAP2 MG PO; KETOROLAC0.03 ML/DR OP; LEVOTHYROXIN0.137 M1 PO; LISINOPRIL 5MG T5 MG PO; LORATADINE 10MG10 M1 PO; METFORMIN 500M500 MG PO; NAPROXEN500 M1 PO; OMEPRAZOLE40 MG PO; PERPHENAZINE4 MG PO; PHENERGAN25 M3 PO; PROMETHAZINE HC25 M1 PO; Q-TUSSIN100 MG/5 M PO; SAPHRIS5 MG SL; VIGAMOX 3 ML3 ML OP; ZOFRAN ODT4 MG PO
--- NOTE | 2016-12-07 22:55 | RADIOLOGY REPORT PS360 ---
HAND-[id number] VIEWS Ordering Physician: Maik Padilla MD Patient Age: 56 years: Female HISTORY: HEALING OF LEFT HAND FX TECHNIQUE: 3 views left hand FINDINGS Hit head on dresser complain pain lateral aspect of hand and wrist. . This patient is comparison studies from 11/06/2016 consistently situated density just anterior to the base of the metacarpals carpals on lateral film which is suggestive of a stable fracture fragment arising likely from fifth fourth or third metacarpal. In either case there seems to be Anatomical relationships of these proximal metacarpals in the of the frontal projection, but Fiberglas splint the interval. Anatomical relationships reestablished. Carpals and carpals and metacarpals intact. Distal radius intact. IMPRESSION. Suggestion subtle irregularities which may reflect healing fracture at the base of the third fourth, and possibly fifth metacarpals. This area is not well seen. Requires correlation.
== END ==
LOC: RAD 08:23
DX: S62.345D Nondisplaced fracture of base of fourth metacarpal bone, left hand, subsequent encounter for fracture with routine healing (principal)